=== PATIENT | male | born 1955 | race Caucasian/White ===

== ENCOUNTER 2022-11-13 00:18 | Day surgery (SDC) | payer MEDICARE, SELFPAY ==
[2022-11-04 10:05] VITALS: BMI 22.2
--- NOTE | 2022-11-13 07:52 | PM.HPGS ---
History of Present Illness History of Present Illness Consent: Risks, benefits, and alternatives have been discussed and questions answered. Patient agrees to proceed with procedure. Chief complaint: colitis Narrative: Shine Ortiz is a 66 year old male Presents for colonoscopy. Is been 10 years since last screening exam. Patient reports his current weight appetite bowel movements are normal. Patient recently travel to [place] on the return home was noted to have significant bloody diarrhea. Upon presenting to the emergency room at [facility] CT scan imaging revealed marked inflammation in the ascending and transverse colon. Patient was treated for probable infectious colitis. Because of significant inflammation patient is referred today for colonoscopy. His symptoms have returned to normal. Current weight appetite bowel movements are normal. Family history noncontributory. Previous screening colonoscopy 10 years ago. Review of Systems Review of Systems: Review of systems noncontributory. [facility] Social History Social History Smoking status: Former smoker Tobacco type: cigarettes Alcohol intake: current Alcohol use details: seldom Substance use type: does not use Living arrangements: alone Spiritual care concerns: No Meds Home Medications and Allergies Home Medications Medication Instructions Recorded Confirmed Type sodium,potassium,mag sulfates 17.5 See Rx Instructions PO .COMPLEX 10/21/22 Rx gram-3.13 gram-1.6 gram oral soln #354 mL (Suprep Bowel Prep Kit) Co Q12 130 mg PO DAILY 11/04/22 11/04/22 History Pqq 40 mg PO DAILY 11/04/22 11/04/22 History ascorbic acid (vitamin C) 1,000 mg 1 g PO DAILY 11/04/22 11/04/22 History tablet aspirin 81 mg tablet 81 mg PO DAILY 11/04/22 11/04/22 History cholecalciferol (vitamin D3) 50 50 mcg PO DAILY 11/04/22 11/04/22 History mcg (2,000 unit) tablet (Vitamin D3) lutein 20 mg tablet 20 mg PO DAILY 11/04/22 11/04/22 History lycopene 10 mg capsule 10 mg PO DAILY 11/04/22 11/04/22 History magnesium 200 mg tablet 420 mg PO DAILY 11/04/22 11/04/22 History mecobalamin (vitamin B12) 1,000 1,000 mcg PO DAILY 11/04/22 11/04/22 History mcg chewable tablet selenium 100 mcg tablet 100 mcg PO EVERY OTHER DAY 11/04/22 11/04/22 History tumeric 100 mg-macey 150 mg-olive 8 cap PO DAILY 11/04/22 11/04/22 History 50 mg-oreg 150 mg-caprylate capsule vitamin B complex 1 tablet PO DAILY 11/04/22 11/04/22 History vitamin E 100 unit capsule 100 unit PO 3XW 11/04/22 11/04/22 History vitamin K2 100 mcg capsule 100 mcg PO DAILY 11/04/22 11/04/22 History Allergies Allergy/AdvReac Type Severity Reaction Status Date / Time No Known Allergies Allergy Verified 11/04/22 10:11 Exam Narrative: Physical exam reveals patient to be alert. Vital signs stable. HEENT exam is unremarkable. Lungs are clear. Heart without murmur. Abdomen bowel sounds present soft nontender with no organomegaly. Digital external rectal exam is normal. Assessment and Plan Assessment and plan (1) Encounter for screening colonoscopy: Code(s): Z12.11 - Encounter for screening for malignant neoplasm of colon Status: Acute Assessment and Plan: Patient presents for screening colonoscopy. Has been 10 years since last exam. Further recommendations will be given after endoscopy. (2) Colitis: Code(s): K52.9 - Noninfective gastroenteritis and colitis, unspecified Status: Acute Assessment and Plan: Patient had recent episode of apparent infectious colitis that has now resolved. He had bloody diarrhea and abnormal CT scan suggesting colitis in the ascending transverse colons. Patient has completed course of antibiotics. Colonoscopy will be performed to evaluate this more thoroughly. At this stage high-fiber diet is advised.
[2022-11-13 09:25] VITALS: BP 130/77; PULSE 91; RESP 16; TEMP 36.4; O2SAT 99; BMI 22.4
[2022-11-13] MEDS: LACTATED RINGERS 1,000 ML 150 ML IV CONT (09:34)
--- NOTE | 2022-11-13 10:19 | P.PNAN_ITS ---
Anes - Initial Pre Proc Eval Procedure: Operation Date: 11/13/22 10:30 Proposed Procedures p Colonoscopy - Vladislav Puentes MD Date/Time: 11/13/22 10:19 Surgeon: Vladislav Puentes MD Pre Op Diagnosis: colitis Patient Data Age: 66 Gender: M Height: 1.75 m Weight: 69 kg Last Vital Signs Temp 97.6 F 11/13/22 09:25 Pulse 91 11/13/22 09:25 Resp 16 11/13/22 09:25 BP 130/77 11/13/22 09:25 Pulse Ox 99 11/13/22 09:25 O2 Del Method Room Air 11/13/22 09:25 Allergies Allergy/AdvReac Type Severity Reaction Status Date / Time No Known Allergies Allergy Verified 11/13/22 09:22 Home Medications Medication Instructions Recorded Confirmed Type Co Q12 130 mg PO DAILY 11/04/22 11/13/22 History Pqq 40 mg PO DAILY 11/04/22 11/13/22 History ascorbic acid (vitamin C) 1,000 mg 1 g PO DAILY 11/04/22 11/13/22 History tablet aspirin 81 mg tablet 81 mg PO DAILY 11/04/22 11/13/22 History cholecalciferol (vitamin D3) 50 50 mcg PO DAILY 11/04/22 11/13/22 History mcg (2,000 unit) tablet (Vitamin D3) lutein 20 mg tablet 20 mg PO DAILY 11/04/22 11/13/22 History lycopene 10 mg capsule 10 mg PO DAILY 11/04/22 11/13/22 History magnesium 200 mg tablet 420 mg PO DAILY 11/04/22 11/13/22 History mecobalamin (vitamin B12) 1,000 1,000 mcg PO DAILY 11/04/22 11/13/22 History mcg chewable tablet selenium 100 mcg tablet 100 mcg PO EVERY OTHER DAY 11/04/22 11/13/22 History tumeric 100 mg-macey 150 mg-olive 8 cap PO DAILY 11/04/22 11/13/22 History 50 mg-oreg 150 mg-caprylate capsule vitamin B complex 1 tablet PO DAILY 11/04/22 11/13/22 History vitamin E 100 unit capsule 100 unit PO 3XW 11/04/22 11/13/22 History vitamin K2 100 mcg capsule 100 mcg PO DAILY 11/04/22 11/13/22 History Patient hx anesthesia problems: none Family hx anesthesia problems: none Results Review: All pre-operative results and documents have been reviewed as part of the pre- operative evaluation. [facility] Social History Social History Smoking status: Former smoker Tobacco type: cigarettes Alcohol intake: current Alcohol use details: seldom Substance use type: does not use Living arrangements: alone Spiritual care concerns: No Anes - Eval Final PreProcedure Day of Procedure 11/13/22 10:19 Patient weight: normal Heart: regular rate and rhythm Lungs: clear to auscultation Airway: Mallampati scale class II Neurological: alert and oriented Last oral intake: >/= 8 hours Emergent: no Anesthetic plan: proceed Anesthesia type and monitoring: general GIVS and standard monitoring Results Review: All pre-operative results and documents have been reviewed as part of the pre- operative evaluation. Informed Consent: The patient's anesthetic plan and its attendant risks and benefits were discussed with the patient/family/POA. Questions were solicited and answers provided to the satisfaction of the patient/family/POA.
[2022-11-13 11:07] VITALS: BP 95/71; PULSE 71; RESP 20; O2SAT 97
[2022-11-13 11:17] VITALS: BP 111/70; PULSE 70; RESP 19; O2SAT 97
[2022-11-13 11:27] VITALS: BP 120/73; PULSE 60; RESP 20; O2SAT 100
== END 2022-11-13 11:38 | disposition home or self-care (01) ==
PROVIDERS: PCP Internal Medicine Gastroenterology; Visit Provider Internal Medicine Gastroenterology
PROC: 0DJD8ZZ Inspection of Lower Intestinal Tract, Via Natural or Artificial Opening Endoscopic (ICD-10-PCS; CPT 45378; principal; 2022-11-13 10:30)
DX: Z12.11 Encounter for screening for malignant neoplasm of colon (principal); K64.8 Other hemorrhoids; K57.30 Diverticulosis of large intestine without perforation or abscess without bleeding; Z87.19 Personal history of other diseases of the digestive system; Z79.82 Long term (current) use of aspirin; Z87.891 Personal history of nicotine dependence
CPT/HCPCS: G0121; J2704; J7120